=== PATIENT | male | born 1995 | race Caucasian/White ===

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

== ENCOUNTER 2021-10-18 12:13 | Emergency (ER) | payer OTHER ==
[~2021-10-18 12:13] MED LIST: CYCLOBENZAPRINE10 MG PO; IBUPROFEN800 MG PO; MEDROL 4MG DOSEP4 MG PO; NAPROXEN500 MG PO; ROBAXIN750 MG PO
[2021-10-18] MEDS ORDERED: NORCO 5-325 TA1 EACH PO (12:34)
[2021-10-18] MEDS ORDERED: AMOX TR-K CLV1 EAC4 PO (12:34)
== END 2021-10-18 16:48 | disposition home or self-care (01) ==
LOC: FER 12:13
DX: K03.81 Cracked tooth (principal); Z28.310 Unvaccinated for COVID-19
CPT/HCPCS: 99282; Q0163